=== PATIENT | male | born 1965 | race Caucasian/White ===

== ENCOUNTER → 2021-08-26 14:35 | Outpatient (CLI) | payer OTHER, SELFPAY ==
[2021-08-26 15:14] LABS: Adenovirus,PCR Not Detected (NotDetected); Bordetella Pertussis Not Detected (NotDetected); Chlamydophila Pneumoniae, PCR Not Detected (NotDetected); Coronavirus 19, PCR Not Detected (NotDetected); Coronavirus 229E Not Detected (NotDetected); Coronavirus NL63 Not Detected (NotDetected); Coronavirus OC43 Not Detected (NotDetected); Coronovirus HKU1,PCR Not Detected (NotDetected); Human Metapneumovirus Not Detected (NotDetected); Influenza A, PCR Not Detected (NotDetected); Influenza AH1, 2009 Not Detected (NotDetected); Influenza AH1, PCR Not Detected (NotDetected); Influenza AH3,PCR Not Detected (NotDetected); Influenza B, PCR Not Detected (NotDetected); Mycoplasma Pneumoniae, PCR Not Detected (NotDetected); Parainfluenza 1, PCR Not Detected (NotDetected); Parainfluenza 2, PCR Not Detected (NotDetected); Parainfluenza 3, PCR Not Detected (NotDetected); Parainfluenza 4, PCR Not Detected (NotDetected); Respiratory Syncytial Virus Not Detected (NotDetected); Rhinovirus/Enterovirus Not Detected (NotDetected)
[2021-08-26 15:31] LABS: Basophils # 0.1 K/mm3 (0-0.2); Basophils % 0.9 % (0.1-2.0); Eosinophils # 0.2 K/mm3 (0.0-0.4); Eosinophils % 2.3 % (0.1-12.0); Hematocrit 49.2 % (42.0-52.0); Lymphocytes # 2.3 K/mm3 (0.7-4.5); Lymphocytes % 33.1 % (10-50); Mean Corpuscular HGB Conc 32.6 g/dL (31.8-35.4); Mean Corpuscular Hemoglobin 30.8 pg (27.0-31.2); Mean Corpuscular Volume 94.6 fl (80-94); Mean Platelet Volume 7.1 fl (7.4-10.4); Monocytes # 0.4 K/mm3 (0.1-1.0); Monocytes % 6.4 % (1.7-9.3); Neutrophils % 57.3 % (37.0-80.0); Platelet Count 254 K/mm3 (142-424); Red Cell Distribution Width 13.6 % (11.5-17.5); White Blood Count 6.9 K/mm3 (4.8-10.8)
[2021-08-26 18:06] LABS: Alanine Aminotransferase 32 U/L (12-78); Albumin Level 4.4 g/dl (3.5-5.0); Albumin/Globulin Ratio 1.4 (1.1-1.8); Alkaline Phosphatase 93 U/L (38-126); Anion Gap 11.7 mEq/L (5-15); Aspartate Amino Transferase 42 U/L (17-59); Bilirubin,Total 0.5 mg/dl (0.2-1.3); Blood Urea Nitrogen 9 mg/dl (9-20); Calcium 9.5 mg/dl (8.4-10.2); Carbon Dioxide 33 mmol/L (22.0-30.0); Chloride 97 mmol/L (98-107); Estimated Glomerular Filt Rate 100 ml/min (>60); GFR (African American) 121 ML/MIN (>60); Globulin 3.1 g/dL (1.3-3.2); Glucose 113 mg/dl (74-100); Potassium 3.7 mmoL/L (3.5-5.1); Sodium 138 mmol/L (136-145); Total Protein,Serum 7.5 g/dl (6.3-8.2)
[2021-08-26 18:38] LABS: Thyroid Stimulating Hormone 4.25 uIU/mL (0.465-4.68)
[2021-08-26 18:56] LABS: Vitamin B12 387 pg/mL (239-931)
== END ==
PROVIDERS: PCP Family Medicine; Visit Provider Physician Assistant
DX: Z20.822 Contact with and (suspected) exposure to COVID-19 (principal)
CPT/HCPCS: 36415; 80053; 82607; 84443; 85025; 87581; 87632; 87798; C9803; U0003; U0005

== ENCOUNTER → 2021-10-01 13:14 | Outpatient (CLI) | payer OTHER, SELFPAY | PROVIDERS: PCP Family Medicine; Visit Provider Family Medicine | DX: U07.1 COVID-19 (principal) | CPT/HCPCS: C9803; U0003; U0005 ==

== ENCOUNTER → 2022-08-11 14:57 | Outpatient (CLI) | payer OTHER, SELFPAY ==
--- NOTE | 2022-08-11 15:02 | CT_ITS ---
FINAL REPORT CLINICAL HISTORY: H/O NICOTINE DEPENDENCE, CURRENT SMOKER 1PPD FOR 37 YUEARS FINDINGS: Low-Dose Chest CT Axial images were obtained from the lung apex to the mid abdomen by computed tomography. Low-dose protocol was utilized. CTDI vol (mGy): 2.90 DLP (mGy-cm): 113.33 There is no axillary adenopathy. There is no hilar or mediastinal adenopathy. The heart is proper size. 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 There is no pericardial or pleural effusion. Lung window images demonstrate mild changes of emphysema with mild pulmonary scarring. There is a calcified granuloma in the lingula. There is a right upper lobe nodule measuring 6 mm on image 38. Limited images of the upper abdomen postoperative changes from cholecystectomy. IMPRESSION: 6 mm right upper lobe nodule. Lung RADS category 3. Recommend 6 month follow-up low-dose chest CT. Reviewed, Interpreted and Dictated by Goyo Gaitan III, MD Transcribed by Devika Bryan Authenticated and [facility]
== END ==
PROVIDERS: PCP Family Medicine; Visit Provider Family Medicine
DX: Z87.891 Personal history of nicotine dependence (principal); Z12.2 Encounter for screening for malignant neoplasm of respiratory organs
CPT/HCPCS: 71271

== ENCOUNTER → 2022-10-14 15:41 | Outpatient (CLI) | payer OTHER, SELFPAY | PROVIDERS: PCP Family Medicine; Visit Provider Family Medicine | DX: G47.33 Obstructive sleep apnea (adult) (pediatric) (principal); R06.83 Snoring; I10 Essential (primary) hypertension | CPT/HCPCS: G0399 ==

== ENCOUNTER → 2022-11-23 09:15 | Outpatient (CLI) | payer OTHER, SELFPAY ==
[2022-11-23 10:35] LABS: Basophils # 0.1 K/mm3 (0-0.2); Basophils % 0.9 % (0.1-2.0); Eosinophils # 0.1 K/mm3 (0.0-0.4); Eosinophils % 1.6 % (0.1-12.0); Hematocrit 44.3 % (42.0-52.0); Hemoglobin 14.1 g/dL (14.1-18.0); Lymphocytes # 1.6 K/mm3 (0.7-4.5); Lymphocytes % 25.5 % (10-50); Mean Corpuscular HGB Conc 31.8 g/dL (31.8-35.4); Mean Corpuscular Hemoglobin 27.9 pg (27.0-31.2); Mean Corpuscular Volume 87.7 fl (80-94); Monocytes # 0.4 K/mm3 (0.1-1.0); Monocytes % 5.9 % (1.7-9.3); Neutrophils # 4.2 K/mm3 (1.8-7.8); Neutrophils % 66.1 % (37.0-80.0); Platelet Count 265 K/mm3 (142-424); Red Blood Count 5.05 M/mm3 (4.60-6.20); Red Cell Distribution Width 14.4 % (11.5-17.5); White Blood Count 6.3 K/mm3 (4.8-10.8)
[2022-11-23 11:24] LABS: Alanine Aminotransferase 22 U/L (12-78); Albumin Level 4.5 g/dl (3.5-5.0); Alkaline Phosphatase 101 U/L (38-126); Anion Gap 11.6 mEq/L (5-15); Aspartate Amino Transferase 26 U/L (17-59); Bilirubin,Indirect 0.5 mg/dL (0.0-0.9); Bilirubin,Total 0.5 mg/dl (0.2-1.3); Bilirubin,Unconjugated 0.5 mg/dL (0.0-1.1); Blood Urea Nitrogen 12 mg/dl (9-20); Calcium 8.9 mg/dl (8.4-10.2); Carbon Dioxide 31 mmol/L (22.0-30.0); Chloride 102 mmol/L (98-107); Cholesterol 142 mg/dl (140-200); Estimated Glomerular Filt Rate 87 ml/min (>60); GFR (African American) 105 ML/MIN (>60); Glucose 92 mg/dl (74-100); HDL Cholesterol 48 mg/dl (40-60); Potassium 4.6 mmoL/L (3.5-5.1); Sodium 140 mmol/L (136-145); Total Protein,Serum 7.5 g/dl (6.3-8.2); Triglycerides 99 mg/dl (30-150); VLDL Cholesterol 20 mg/dL (0-40)
[2022-11-23 11:35] LABS: Direct LDL Cholesterol 73.24 mg/dL (100-129)
[2022-11-23 11:41] LABS: Free T4 (Free Thyroxine) 0.87 ng/dl (0.78-2.19)
[2022-11-23 11:57] LABS: Thyroid Stimulating Hormone 4.07 uIU/mL (0.465-4.68)
[2022-11-23 12:01] LABS: Ferritin 10.4 ng/ml (17.9-464)
== END ==
PROVIDERS: Nurse Practitioner Family; PCP Family Medicine; Visit Provider Nurse Practitioner Family
DX: I49.9 Cardiac arrhythmia, unspecified (principal); E78.5 Hyperlipidemia, unspecified; I10 Essential (primary) hypertension; E83.10 Disorder of iron metabolism, unspecified; G25.81 Restless legs syndrome
CPT/HCPCS: 36415; 80048; 80061; 80076; 82728; 83735; 84439; 84443; 85025

== ENCOUNTER → 2022-11-25 07:46 | Outpatient (CLI) | payer OTHER, SELFPAY ==
--- NOTE | 2022-11-25 07:47 | CA_ITS ---
APPROVED REPORT EXAM: Comprehensive 2D, Doppler, and color-flow Echocardiogram Pack Puller: MICHAEL Farrell, RVS Ht: 6 ft 2 in Wt: 327lbs BSA: 2.68 BP: 130/76 mmHg Indications: Apnea, Arrthymia, Obesity, HTN, HLD, Smoker Echo Enhancing Agent Comments: Extremely limited acoustic windows due to excessive chest circumference. 2D Dimensions Aortic Root 3.49 cm LA Volume 36.50 mL Left Atrium 3.52 cm LA Volume Index 13.30 mL/m2 (M/F) 16-34 LVOT 2.07 cm (M/F) 1.5-2.5 M-Mode Dimensions RVDd 2.15 cm (0.9-2.6) LA Diam 4.38 cm (1.9-4.0) LVDd 5.24 cm (3.5-5.7) Ao Diam 3.35 cm (2.0-3.7) LVDs 3.47 cm (3.5-5.7) IVSd 1.40 cm (0.6-1.1) PWd 1.31 cm (0.6-1.1) EF (Teich) 62.20% EPSs 0.94 cm FS 33.80% EDV (Teich) 131.80 mL TAPSE 2.91 (<1.7) ESV (Teich) 49.80 mL LV Diastology E Decel Time 260.00 (160-240 msec) E/A Ratio 1.17 MED E' 7.80 (< 7 cm/sec) MED A' 12.40 cm/s E'/MED E' Ratio 13.81 (>14) LAT E' 7.40 (<10 cm/sec) LAT A' 11.90 cm/s E/LAT E' Ratio 14.55 (>14) Aortic Valve LVOT Max 117.00 (70-110 cm/s) LVOT VTI 22.53 cm AoV Peak Chele. 137.00 (50-130 cm/s) AO Peak GR. 7.50 mmHg AO Mean GR. 3.60 (<5 mmHg) AO VTI 25.43 (18-25 cm) BINA (VTI) 2.98 (2.5-4.5 cm2) Mitral Valve MV A Velocity 92.00 (40-130 cm/s) E/A Ratio 1.17 MV Decel. Time 260.00 (160-240 ms) MV PHT 47.00 ms Pulmonary Valve PV Peak Velocity 83.00 (50-150 cm/s) Left Ventricle Technically difficult study because of the patient factors and poor acoustic windows. Left atrium is mildly enlarged, left ventricle is normal size mild concentric left ventricular hypertrophy, estimated ejection fraction 55% with no regional wall motion abnormality, diastolic parameters are inconclusive. Right Ventricle Right atrium and right ventricular normal size and contractility. Aortic Valve Aortic valve is minimally thickened and calcified without aortic stenosis or aortic insufficiency. Mitral Valve Mitral valve has mild calcification, there is no mitral stenosis, there is mild mitral regurgitation. Tricuspid Valve Tricuspid grossly normal, there is mild tricuspid regurgitation, tricuspid regurgitation jet velocity is inadequate for calculation of the right ventricular systolic pressure. Pulmonic Valve Pulmonic valve is poorly visualized. Great Vessels Aortic root is normal size. Inferior vena cava is poorly visualized. Pericardium No significant pericardial effusion noted. Conclusion 1. Technically difficult study because of the patient factors and poor acoustic windows. Mildly enlarged left atrium, normal left ventricular size mild concentric left ventricular hypertrophy, estimated ejection fraction 55% with no regional wall motion abnormality, diastolic parameters are inconclusive. 2. Trace mitral and tricuspid regurgitation. 3. No significant pericardial effusion noted. 4. Inferior vena cava is poorly visualized. Electronically signed by : Bennie Lacy MD 11/25/2022 17:33:11
[2022-11-25 09:31] LABS: Iron 49 ug/dL (49-181)
[2022-11-25 09:41] LABS: Total Iron Binding Capacity 413 ug/dL (261-462)
== END ==
PROVIDERS: Nurse Practitioner Family; PCP Family Medicine; Visit Provider Nurse Practitioner Family
DX: I49.9 Cardiac arrhythmia, unspecified (principal); E61.1 Iron deficiency
CPT/HCPCS: 36415; 83540; 83550; 93225; 93306

== ENCOUNTER → 2022-12-21 09:20 | Outpatient (CLI) | payer OTHER, SELFPAY | PROVIDERS: PCP Family Medicine; Visit Provider Nurse Practitioner Family | DX: I49.9 Cardiac arrhythmia, unspecified (principal) | CPT/HCPCS: 93270 ==

== ENCOUNTER → 2023-03-10 15:06 | Outpatient (CLI) | payer OTHER, SELFPAY ==
--- NOTE | 2023-03-10 15:09 | CT_ITS ---
FINAL REPORT TECHNIQUE: This study was performed with techniques to keep radiation doses as low as reasonably achievable, (ALARA). Individualized dose reduction techniques using automated exposure control or adjustment of mA and/or kV according to the patient''s size were employed. CLINICAL HISTORY: ABN CT CHEST, 6 MOS F/U ABNORMAL CT COMPARISON: CT low-dose 08/11/2020 FINDINGS: CTDI vol (mGy): 24.20 DLP (mGy-cm): 948.[address] images of the chest were obtained using the low-dose protocol for screening. There is no evidence of mediastinal or hilar mass or adenopathy. No axillary mass or adenopathy is identified. Note is made of right-sided aortic arch with aberrant left subclavian artery as a variant. On the lung window images, there is a stable 5 mm right upper lobe nodule seen on image 41. There is mild emphysema. Mild scarring. No new mass or nodule. Limited images of the upper abdomen demonstrate postoperative changes from cholecystectomy. IMPRESSION: Stable right upper lobe nodule. Lung RADS category 2: Recommend 12-month follow-up low-dose CT. Reviewed, Interpreted and Dictated by Goyo Gaitan III, MD Transcribed by Deirdre Delgado Authenticated and [facility]
== END ==
PROVIDERS: PCP Family Medicine; Visit Provider Family Medicine
DX: R93.89 Abnormal findings on diagnostic imaging of other specified body structures (principal)
CPT/HCPCS: 71250

== ENCOUNTER 2024-04-03 15:43 | Outpatient (CLI) | payer BC, SELFPAY ==
--- NOTE | 2024-04-03 15:45 | US_ITS ---
FINAL REPORT TECHNIQUE: Ultrasound images of the testicles were obtained bilaterally. Color Doppler images were obtained. CLINICAL HISTORY: CYST AND EPIDIDYMIS FINDINGS: The right testicle measures 4.2 cm. Arterial flow is identified. No testicular mass is identified. There is a 1.6 cm cystic mass in the right epididymal head consistent with epididymal cyst versus spermatocele. There is a small right hydrocele. The left testicle measures 4.4 cm. Arterial flow is identified. No testicular mass is seen. There is a small hydrocele. IMPRESSION: No evidence of testicular mass or torsion. Cystic mass in the right epididymal head consistent with epididymal cyst versus spermatocele. Reviewed, Interpreted and Dictated by Goyo Gaitan III, MD Transcribed by Saadia Mooney Authenticated and [facility]
== END 2024-04-03 23:59 | disposition home or self-care (01) ==
PROVIDERS: PCP Family Medicine; Visit Provider Family Medicine
DX: N50.3 Cyst of epididymis (principal)
CPT/HCPCS: 76870

== ENCOUNTER 2024-12-17 08:04 | Outpatient (CLI) | payer BC, SELFPAY ==
[2024-12-17 09:10] LABS: Alanine Aminotransferase 17 U/L (12-78); Albumin Level 4.2 g/dl (3.5-5.0); Albumin/Globulin Ratio 1.3 (1.1-1.8); Alkaline Phosphatase 74 U/L (38-126); Anion Gap 13.2 mEq/L (5-15); Aspartate Amino Transferase 25 U/L (17-59); Bilirubin,Total 0.7 mg/dl (0.2-1.3); Blood Urea Nitrogen 9 mg/dl (9-20); Calcium 9.1 mg/dl (8.4-10.2); Carbon Dioxide 31 mmol/L (22.0-30.0); Chloride 103 mmol/L (98-107); Chol/HDL Ratio 2.7 (1-3.5); Cholesterol 127 mg/dl (140-200); Estimated Glomerular Filt Rate 99 ml/min (>60); GFR (African American) 119 ML/MIN (>60); Globulin 3.3 g/dL (1.3-3.2); Glucose 97 mg/dl (74-100); HDL Cholesterol 47 mg/dl (40-60); Potassium 4.2 mmoL/L (3.5-5.1); Sodium 143 mmol/L (136-145); Total Protein,Serum 7.5 g/dl (6.3-8.2); Triglycerides 76 mg/dl (30-150); VLDL Cholesterol 15 mg/dL (0-40)
[2024-12-17 09:21] LABS: Direct LDL Cholesterol 52.11 mg/dL (100-129)
[2024-12-17 09:39] LABS: Prostate Specific Ag Screen 0.4 ng/ml (0.0-4.0)
== END 2024-12-17 23:59 | disposition home or self-care (01) ==
LOC: LAB 08:05
PROVIDERS: PCP Family Medicine; Visit Provider Family Medicine
DX: N40.0 Benign prostatic hyperplasia without lower urinary tract symptoms (principal); I10 Essential (primary) hypertension; E78.5 Hyperlipidemia, unspecified
CPT/HCPCS: 36415; 80053; 80061; G0103

== ENCOUNTER 2025-05-06 17:50 | Outpatient (CLI) | payer BC, SELFPAY ==
--- OUTSIDE RECORDS SUMMARY | 2024-03-26 12:15 | XMS_ITS ---
Author Organization [facility] Address [address] [facility] [address] [place] [id number] Care Team Providers Care Hop Farm Worker Name Role Phone Ban Webster Primary Care Provider Allergies Allergen (clinical drug ingredient) Drug/Non Drug Allergy documented on EMR Reaction Allergy Type Onset Date Status Penicillin Unknown Drug Allergy Active Results Component Value Reference Range Notes Ultrasound : Scrotum Reviewed date:04/05/2024 10:48:03 AM Interpretation:cystic mass- epididymal cyst versus spermatocele Performing Lab: Notes/Report: cystic mass- epididymal cyst versus spermatocele REASON FOR VISIT 5 mo ck up, Needs low dose chest CT Medications Medication SIG (Take, Route, Frequency, Duration) Notes Start Date End Date Status Slow Fe 142 (45 Fe) MG 1 tablet Orally T wo times a Week Active DULoxetine HCl 60 MG 1 capsule Orally On ce a day; Duration: 90 days Active Omeprazole 40 MG 1 Orally once daily; Duration: 90 days Active Rosuvastatin Calcium 10 MG 1 tablet Oral ly Once a day; Duration: 90 days Active Ramipril 5 MG 1 capsule Orally Onc e a day; Duration: 90 days Active hydroCHLOROthiazide 25 MG 1 Orally once daily; Duration: 90 days Active Problems Problem Type SNOMED Code ICD Code Onset Dates Problem Status W/U Status Risk Notes Problem Body mass index 40+ - severely obese ([id number]) Body mass index (BMI) of 40.1 to 44.9 in adult (Z68.41) Active confirmed Vital Signs Blood pressure systolic 126 mm Hg 03/26/20 24 Blood pressure diastolic 82 mm Hg 024 Heart Rate 75 /min 03/26/2024 Height 74 in 03/26/2024 Weight 325.4 lbs 03/26/2024 BMI 41.77 kg/m2 03/26/2024 Encounters Encounter Location Date Provider Diagnosis [facility] [address] [facility] [address] [place] [id number] 03/26/2024 Ban Webster Essential hypertensi on I10 ; Body mass index (BMI) of 40.1 to 44.9 in adult Z68.41 and Cyst, epididymis N50.3 Assessments Encounter Date Diagnosis (ICD Code) Assessment Notes Treatment Notes Treatment Clinical Notes Section Notes 03/26/2024 Essential hypertension (ICD-10 - I10) Recommended OTC Potassium 99mg, two daily 03/26/2024 Body mass index (BMI) of 40.1 to 44.9 in adult (ICD-10 - Z68.41) 03/26/2024 Cyst, epididymis (ICD-10 - N50.3) Plan Of Treatment Medication Medication Name Sig Start Date Stop Date Notes DULoxetine HCl 60 MG 1 capsule Orally On ce a day; Duration: 90 days Omeprazole 40 MG 1 Orally once daily; Duration: 90 days Rosuvastatin Calcium 10 MG 1 tablet Oral ly Once a day; Duration: 90 days Ramipril 5 MG 1 capsule Orally Onc e a day; Duration: 90 days hydroCHLOROthiazide 25 MG 1 Orally once daily; Duration: 90 days Treatment Notes Assessment Notes Essential hypertension Recommended OTC P otassium 99mg, two daily Next Appt Details Follow Up: 3 Months, Reason: Provider Name:Rudolph Avila ry, 05/10/2025 04:15:00 PM, [address] [facility], [address], [place], [phone], Provider Name:Ban Garcia er, 05/13/2025 04:00:00 PM, [address] [facility], [address], [place], [phone], Progress Notes * ERICH FENTONDOB:1965 ( 59 yo M)Acc No.[id number]:03/26/2024 Progress Notes Patient: ERICH WREN Provider: Ban Webster M.D. :1965 A ge:58 Y S ex:Male Date:03/26/2024 Address:[place], [id number] Subjective: * Chief Complaints: * 1 . 5 mo ck up. 2. Needs low dose chest CT. * HPI: C ardiology: The pt is here for a check up on Hypertension. Pt states he is doing good and denies any new concerns. Pt states he is needing refills sent to [facility] pharmacy for 90 days supply. Denies : Chest Pain. D enies : Short of Breath. D enies : Dizziness. D enies : Palpitations. M mingo Reproductive: Denies : testicular swelling b ut he has noticed an elargement near the right testicle, only slight tenderness. * ROS: D ERMATOLOGY: no R sue. n o H juan carlos. G ASTROENTEROLOGY: no N ausea. n o V omiting. n o D iarrhea.? U ROLOGY: no D ifficulty urinating. n o B lood in urine. * Medical History: H ypertension, Hiatal hernia, Esophageal reflux, COVID 19 infection 2021, 10/25/22 Neg Cologuard. * Surgical History: t onsillectomy , cholecystectomy 11/2013, C6-7 diskectomy with fusion with Dr Smith 04/2016, C4-6 diskectomy and fusion - Dr. Smith 08/2020. * Hospitalization/Major Diagno stic Procedure: E R, Cholelithiasis 11/26/13. * Family History: F ather: alive. M other: , MVA. 3 brother(s) - healthy. 2 son(s) - healthy. .? * Social History: C URRENT TOBACCO USE S moking Status: Patient does smoke, packs per day: 1, number of cigarettes per day: 20, Since age of: 19, Smoking preference: cigarettes. H ome smoke detector use: yes. Marital Status: . Past smoking status: yes, PPD: 1, years:18 ,determination:. * Medications: T aking Slow Fe 142 (45 Fe) MG Tablet Extended Release 1 tablet Orally Two times a Week , Taking Omeprazole 40 MG Capsule Delayed Release TAKE 1 CAPSULE BY MOUTH ONCE DAILY , Taking hydroCHLOROthiazide 25 MG Tablet TAKE 1/2 TABLET BY MOUTH ONCE DAILY , Taking Ramipril 5 MG Capsule 1 capsule Orally Once a day , Taking DULoxetine HCl 60 MG Capsule Delayed Release Particles 1 capsule Orally Once a day , Taking Rosuvastatin Calcium 10 MG Tablet 1 tablet Orally Once a day , Discontinued CoQ10 200 MG Capsule 200 mg orally once a day , Discontinued B-12 1000 MCG Tablet 1 tab(s) orally once a day , Medication List reviewed and reconciled with the patient * Allergies: P enicillin. Objective: * Vitals: W t:325.4, Temp:98.1, BP:126/82, HR:75, Nurse:LIZ, Ht: 74, BMI:41.77. * Examination: G eneral Examination: General Appearance: N AD. H EENT: u nremarkable.?Oral cavity: n o lesions, mucosa moist and WNL, no erythema. N renzo: s upple, no lymphadenopathy. C hest: n ormal shape and expansion. H eart: R SR. L ungs: c lear to auscultation. A bdomen: soft and nontender, no organomegaly or masses. N eurologic Exam: I ntact, gait normal. S kin: n ormal, no rash. P eripheral pulses: n ormal. B ack: dorsal kyphosis. E xtremities: 2 + l eg edema. G enitalia: testes palpable bilaterally, testes normal, no lesions. There is a cystic enlargement of the right epididymis, about 2 cm. Not very tender.. Assessment: * Assessment: 1. E ssential hypertension - I10 (Primary) 2 . B savi mass index (BMI) of 40.1 to 44.9 in adult - Z68.41 3 . C yst, epididymis - N50.3 Plan: * Treatment: 2. C yst, epididymis I maging: Ultrasound : Scrotum (Performed Date - 04/03/2024) c ystic mass- epididymal cyst versus spermatocele 3.?Others? Refill DULoxetine HCl Capsule Delayed Release Particles, 60 MG, 1 capsule, Orally, Once a day, 90 days, 90 Capsule, Refills 1;?Refill Omeprazole Capsule Delayed Release, 40 MG, 1, Orally, once daily, 90 days, 90, Refills 1;?Refill Rosuvastatin Calcium Tablet, 10 MG, 1 tablet, Orally, Oncea day, 90 days, 90 Tablet, Refills 1.?? * Follow Up: 3 Months * Images: Billing Information: * Visit Code: 82835 Office Visit, Est Pt., Level 4. * Procedure Codes: * Electronic signature of Ban Webster MD on 05/06/2025 at 05:54 PM EDT Sign off status: Pending * Provider: Ban Webster M.D. Date: 0 03/26/2024 Generated for Daii dontae/Marsha/eTransmitting on: 0 05/06/2025 05:54 PM EDT History and Physical Notes * HPI (History of Present Illness) Category Sub-Category Detail Notes Category Not es Cardiology Short of Breath Chest Pain Palpitations Dizziness Male Reproductive testicular swelling but he has noticed an elargement near the right testicle, only slight tenderness Examination Category Sub-Category Detail Notes Category Not es General Examination HEENT: unremarkable Heart: RSR Lungs: clear to auscultatio n Abdomen: soft and nontender, no organomegaly or masses Extremities: 2+ leg edema General Appearance: NAD Skin: normal, no rash Neurologic Exam: Intact, gait normal Neck: supple, no lymphaden opathy Oral cavity: no lesions, mucosa m oist and WNL, no erythema Peripheral pulses: normal Back: dorsal kyphosis Genitalia: testes palpable bila terally, testes normal, no lesions. There is a cystic enlargement of the right epididymis, about 2 cm. Not very tender. Chest: normal shape and exp ansion
--- OUTSIDE RECORDS SUMMARY | 2024-06-28 11:15 | XMS_ITS ---
[facility] Address [address] [facility] [address] [place] [id number] Care Team Providers Care Customer Acquisition Manager Name Role Phone Ban Webster Primary Care Provider Allergies Allergen (clinical drug ingredient) Drug/Non Drug Allergy documented on EMR Reaction Allergy Type Onset Date Status Penicillin Unknown Drug Allergy Active Results Component Value Reference Range Notes P-Comprehensive Metabolic Pa gilberto (CMP) Reviewed date:07/09/2024 10:24:04 AM Interpretation: Performing Lab: Notes/Report: REASON FOR VISIT 3 mo ck up, Needs labs & low dose chest CT Medications Medication SIG (Take, Route, Frequency, Duration) Notes Start Date End Date Status hydroCHLOROthiazide 25 MG 1 Orally once daily; Duration: 90 days Active DULoxetine HCl 60 MG 1 capsule Orally On ce a day; Duration: 90 days Active Ramipril 5 MG 1 capsule Orally Onc e a day; Duration: 90 days Active Rosuvastatin Calcium 10 MG 1 tablet Oral ly Once a day; Duration: 90 days Active Omeprazole 40 MG 1 Orally once daily; Duration: 90 days Active Slow Fe 142 (45 Fe) MG 1 tablet Orally T wo times a Week Active Vital Signs Blood pressure systolic 122 mm Hg 06/28/20 24 Blood pressure diastolic 80 mm Hg 024 Heart Rate 70 /min 06/28/2024 Height 74 in 06/28/2024 Weight 319.4 lbs 06/28/2024 BMI 41.00 kg/m2 06/28/2024 Encounters Encounter Location Date Provider Diagnosis [facility] [address] [facility] [address] [place] [phone] 06/28/2024 Ban Webster Essential hypertensi on I10 and Seborrheic keratosis L82.1 Assessments Encounter Date Diagnosis (ICD Code) Assessment Notes Treatment Notes Treatment Clinical Notes Section Notes 06/28/2024 Essential hypertension (ICD-10 - I10) 06/28/2024 Seborrheic keratosis (ICD-10 - L82.1) Plan Of Treatment Next Appt Details Follow Up: 5 Months, Reason: Provider Name:Rudolph Avila ry, 05/10/2025 04:15:00 PM, [address], [address], [place], [place], [phone], Provider Name:Ban Garcia er, 05/13/2025 04:00:00 PM, [address] [facility], [address], [place], [place], [phone], Procedure Notes * Category Sub-Category Detail Notes Cryotherapy Benign Lesion Method: Wallac h LL 100 used to freeze and refreeze the lesion Post-Op Instruction: clean wound with vi sari water twice a day, Apply Vaseline twice a day to wound Progress Notes * ERICH FENTONDOB:1965 ( 59 yo M)Acc No.[id number]:06/28/2024 Progress Notes Patient: ERICH WREN Provider: Ban Webster M.D. :1965 A ge:58 Y S ex:Male Date:06/28/2024 Address:[address] [place], [place] [address], [id number] Subjective: * Chief Complaints: * 1 . 3 mo ck up. 2. Needs labs & low dose chest CT. * HPI: C ardiology: The patient is here for a check up on Hypertension. pt states he does not check his BP at home. Pt states he has a dark spot on the left forearm he would like checked today. Denies : Chest Pain. D enies : Short of Breath. D enies : Dizziness. D enies : Palpitations. P sychology: Doing well on Duloxetine. I told him to check with Pharmacist regarding recent recall. * ROS: D ERMATOLOGY: no R sue. [...] Orally Two times a Week , Taking hydroCHLOROthiazide 25 MG Tablet 1 Orally once daily , Taking Ramipril 5 MG Capsule 1 capsule Orally Once a day , Taking DULoxetine HCl 60 MG Capsule Delayed Release Particles 1 capsule Orally Once a day , Taking Omeprazole 40 MG Capsule Delayed Release 1 Orally once daily , Taking Rosuvastatin Calcium 10 MG Tablet 1 tablet Orally Once a day , Medication List reviewed and reconciled with the patient * Allergies: P enicillin. Objective: * Vitals: W t:319.4, Temp:98.2, BP:122/80, HR:70, Nurse:LIZ, Ht: 74, BMI:41.00. * Examination: G eneral Examination: General Appearance: [...] E xtremities: 2 + l eg edema. ? Assessment: * Assessment: 1. E ssential hypertension - I10 (Primary) 2 . S eborrheic keratosis - L82.1 Plan: * Treatment: * Procedures: C ryotherapy Benign Lesion: Method: W allach LL 100 used to freeze and refreeze the lesion. P ost-Op Instruction: c lean wound with vinegar water twice a day, Apply Vaseline twice a day to wound. * Follow Up: 5 Months * Images: Billing Information: * Visit Code: 63135 Office Visit, Est Pt., Level 4. * Procedure Codes: * Electronic signature of Ban Webster MD on 05/06/2025 at 05:54 PM EDT Sign off status: Pending * Provider: Ban Webster M.D. Date: Generated for Daii dontae/Marsha/eTransmitting on: 0 05/06/2025 05:54 PM EDT History and Physical Notes * HPI (History of Present Illness) Category Sub-Category Detail Notes Category Not es Cardiology Short of Breath Chest Pain Palpitations Dizziness Examination Category Sub-Category Detail Notes Category Not [...] Peripheral pulses: normal Back: dorsal kyphosis Genitalia: Chest: normal shape and exp ansion
--- OUTSIDE RECORDS SUMMARY | 2024-12-10 12:00 | XMS_ITS ---
Author Organization [facility] Address [address] [place] [id number] Care Team Providers Care Associate Marketing Manager Name Role Phone Ban Webster Primary Care Provider Allergies Allergen (clinical drug ingredient) Drug/Non Drug Allergy documented on EMR Reaction Allergy Type Onset Date Status Penicillin Unknown Drug Allergy Active Results Component Value Reference Range Notes PSA Reviewed date:12/20/2024 01:40:06 PM Interpretation: Performing Lab: Notes/Report: Complete Metabolic Profile Reviewed date:12/20/2024 01:40:43 PM Interpretation: Performing Lab: Notes/Report: lipid profile Reviewed date:12/20/2024 01:41:01 PM Interpretation: Performing Lab: Notes/Report: REASON FOR VISIT 5 month check up, Needs labs with PSA, low dose chest CT, & shingles vaccine Medications Medication SIG (Take, Route, Frequency, Duration) Notes Start Date End Date Status Slow Fe 142 (45 Fe) MG 1 tablet Orally T wo times a Week Active Ramipril 5 MG TAKE 1 CAPSULE BY MO [facility] ONCE DAILY; Duration: 90 Active Omeprazole 40 MG TAKE 1 CAPSULE BY MO [facility] ONCE DAILY; Duration: 90 Active hydroCHLOROthiazide 25 MG TAKE 1 TABLET BY MOUTH ONCE DAILY; Duration: 90 Active DULoxetine HCl 60 MG TAKE 1 CAPSULE BY M [facility] ONCE DAILY; Duration: 90 Active Rosuvastatin Calcium 10 MG TAKE 1 TABLET BY MOUTH ONCE DAILY; Duration: 90 Active Problems Problem Type SNOMED Code ICD Code Onset Dates Problem Status W/U Status Risk Notes Problem Hyperlipidaemia (27335490) Hyperlipidemia, unspecified hyperlipidemia type (E78.5) Active confirmed Problem Pure hypercholesterolemia (285703829) Pure hypercholesterolemia (E78.00) Active confirmed Vital Signs Blood pressure systolic 130 mm Hg 12/11/19 25 Blood pressure diastolic 80 mm Hg 025 Heart Rate 71 /min 12/10/2024 Height 74 in 12/10/2024 Weight 319.0 lbs 12/10/2024 BMI 40.95 kg/m2 12/10/2024 Encounters Encounter Location Date Provider Diagnosis [facility] [address] [place] [id number] 12/10/2024 Ban Webster Essential hypertensi on I10 ; Pure hypercholesterolemia E78.0 ; Status post cervical spinal fusion Z98.1 ; Body mass index (BMI) of 40.1 to 44.9 in adult Z68.41 ; Benign prostatic hyperplasia without lower urinary tract symptoms N40.0 ; Hyperlipidemia, unspecified hyperlipidemia type E78.5 and Pure hypercholesterolemia E78.00 Assessments Encounter Date Diagnosis (ICD Code) Assessment Notes Treatment Notes Treatment Clinical Notes Section Notes 12/10/2024 Essential hypertensi on (ICD-10 - I10) 12/10/2024 Pure hypercholesterolemia (ICD-10 - E78.0) 12/10/2024 Status post cervical spinal fusion (ICD-10 - Z98.1) 12/10/2024 Body mass index (BMI ) of 40.1 to 44.9 in adult (ICD-10 - Z68.41) 12/10/2024 Benign prostatic hyperplasia without lower urinary tract symptoms (ICD-10 - N40.0) 12/10/2024 Hyperlipidemia, unspecified hyperlipidemia type (ICD-10 - E78.5) 12/10/2024 Pure hypercholesterolemia (ICD-10 - E78.00) Plan Of Treatment Next Appt Details Follow Up: 5M, Reason: Provider Name:Rudolph Avila ry, 05/10/2025 04:15:00 PM, [address] [facility], [address], [place], [id number], Provider Name:Ban Garcia er, 05/13/2025 04:00:00 PM, [address] [facility], [address], [place], [id number], Progress Notes * SEVERIANO FENTON:1965 ( 59 yo M)Acc No.[id number]:12/10/2024 Progress Notes Patient: ERICH WREN Provider: Ban Webster M.D. :1965 A ge:59 Y S ex:Male Date:12/10/2024 Address:[facility] [place], [id number] Subjective: * Chief Complaints: * 1 . 5 month check up. 2. Needs labs with PSA, low dose chest CT, & shingles vaccine. * ROS: D ERMATOLOGY: no R sue. [...] Week , Taking hydroCHLOROthiazide 25 MG Tablet TAKE 1 TABLET BY MOUTH ONCE DAILY , Taking Omeprazole 40 MG Capsule Delayed Release TAKE 1 CAPSULE BY MOUTH ONCE DAILY , Taking Ramipril 5 MG Capsule TAKE 1 CAPSULE BY MOUTH ONCE DAILY , Taking Rosuvastatin Calcium 10 MG Tablet TAKE 1 TABLET BY MOUTH ONCE DAILY , Taking DULoxetine HCl 60 MG Capsule Delayed Release Particles TAKE 1 CAPSULE BY MOUTH ONCE DAILY , Medication List reviewed and reconciled with the patient * Allergies: P enicillin. Objective: * Vitals: W t:319.0, Temp:98.2, BP:130/80, HR:71, Nurse:LIZ, Ht: 74, BMI:40.95. * Examination: G eneral Examination: General Appearance: [...] ormal. B ack: dorsal kyphosis. E xtremities: 1 + l eg edema. ? Assessment: * Assessment: 1. E ssential hypertension - I10 (Primary) 2 . P ure hypercholesterolemia - E78.0 3 . S tatus post cervical spinal fusion - Z98.1 4 . B savi mass index (BMI) of 40.1 to 44.9 in adult - Z68.41 5 . B enign prostatic hyperplasia without lower urinary tract symptoms - N40.0 6 . H yperlipidemia, unspecified hyperlipidemia type - E78.5 7 . P ure hypercholesterolemia - E78.00 Plan: * Treatment: 2.?Benign prostatic hyperplasia without lower urinary tract symptoms?LAB: PSA (Collection Date & Time - 12/20/2024)* see duplicate order 3.?Hyperlipidemia, unspecified hyperlipidemia type?LAB: lipid profile (Collection Date & Time - 12/20/2024)* see duplicate order * Procedure Codes: 3 075F SYST BP GE 130 - 139MM HG, 3079F DIAST BP 80-89 MM HG * Follow Up: 5 M * Images: Billing Information: * Visit Code: 76318 Office Visit, Est Pt., Level 4. * Procedure Codes: 3075F SYST BP GE 130 - 139MM HG. 3079F DIAST BP 80-89 MM HG. * Electronic signature of Ban Webster MD on 05/06/2025 at 05:54 PM EDT Sign off status: Pending * Provider: Ban Webster M.D. Date: 0 12/10/2024 Generated for Jonathan diggs/Marsha/eTransmitting on: 0 05/06/2025 05:54 PM EDT History and Physical Notes * Examination Category Sub-Category Detail Notes Category Not es General Examination HEENT: unremarkable Heart: RSR Lungs: clear to auscultatio n Abdomen: soft and nontender, no organomegaly or masses Extremities: 1+ leg edema General Appearance: NAD Skin: normal, no rash Neurologic Exam: Intact, gait normal Neck: supple, no lymphaden opathy Oral cavity: no lesions, mucosa m oist and WNL, no erythema Peripheral pulses: normal Back: dorsal kyphosis Genitalia: Chest: normal shape and exp ansion
--- NOTE | 2025-05-06 | XR_ITS ---
PROCEDURE INFORMATION: Exam: XR Chest Exam date and time: 05/06/2025 6:46 PM Age: 59 years old Clinical indication: Cough and shortness of breath; Smoker's cough; Additional info: PT has had cough since labor day and SOB. Smoker of 40 yrs TECHNIQUE: Imaging protocol: Radiologic exam of the chest. Views: 2 views. COMPARISON: CT CHEST WO CON 03/10/2023 3:16 PM FINDINGS: Tubes, catheters and devices: Plate screw hardware overlies the lower cervical spine. Lungs: Central opacities with peribronchial cuffing, seen to advantage on the lateral chest radiograph. Right basilar opacities partially silhouette the diaphragm with loss of airspace favoring atelectasis. Pleural spaces: Unremarkable. No pleural effusion. No pneumothorax. Heart/Mediastinum: Unremarkable. No cardiomegaly. Bones/joints: Unremarkable. IMPRESSION: 1. Combination of findings that suggests viral process versus reactive airways without evidence of consolidation. 2. Right basilar opacities partially silhouette the diaphragm with loss of airspace favoring atelectasis.
--- OUTSIDE RECORDS SUMMARY | 2025-05-06 17:54 | XMS_ITS | Patient Health Record ---
[facility] Organization [facility] Address [address] [place] [phone] Care Team Providers Care Mechanical Product Design Engineer Name Role Phone Ban Webster Primary Care Provider Allergies Allergen (clinical drug ingredient) Drug/Non Drug Allergy documented on EMR Reaction Allergy Type Onset Date Status Penicillin Unknown Drug Allergy Active Results Component Value Reference Range Notes Influenza Screen (in house) (Not yet reviewed by provider) Interpretation: Performing Lab: Notes/Report: results Neg CBC Fingerstick (in house) ( Not yet reviewed by provider) Interpretation: Performing Lab: Notes/Report: wbc 10.4 3.5 - 10 lym 20.6% 15 - 50 mid 6.0% 2 - 15 gran 73.4% 35 - 80 rbc 4.90 3.5 - 5.5 hgb 15.5 11.5 - 16.5 hct 45.8 35 - 55 mcv 93.5 75 - 100 mch 31.6 25 - 35 mchc 33.8 31 - 38 plat 176 100 - 400 Covid test (in house) (Not y et reviewed by provider) Interpretation: Performing Lab: Notes/Report: Result: Neg lipid profile Reviewed date:12/20/2024 01:41:01 PM Interpretation: Performing Lab: Notes/Report: Complete Metabolic Profile Reviewed date:12/20/2024 01:40:43 PM Interpretation: Performing Lab: Notes/Report: PSA Reviewed date:12/20/2024 01:40:06 PM Interpretation: Performing Lab: Notes/Report: P-Comprehensive Metabolic Pa gilberto (CMP) Reviewed date:07/09/2024 10:24:04 AM Interpretation: Performing Lab: Notes/Report: P-Basic Metabolic Panel (BMP ) Reviewed date:07/04/2024 04:33:51 PM Interpretation: Normal Performing Lab: Notes/Report: Test performed by [facility], [address] , [address], [place] [address] Brad Baker MD, Esl Instructor CLIA: [id number] Sodium 142 135-145 mmol/L Potassium 4.4 3.5-5.3 mmol/L Chloride 102 97-108 mmol/L CO2 25 22-32 mmol/L Glucose 93 65-99 mg/dL BUN 16 6-20 mg/dL Creatinine 0.88 0.70-1.30 mg/dL Calcium 9.2 8.6-10.4 mg/dL eGFR by Creatinine 99 >59 mL/min/1.73m2 H-Lipid Panel Reviewed date:01/11/2025 01:10:20 PM Interpretation:chol 127, dldl 52 Performing Lab: Notes/Report: Patient Fasting? Y TRIG 76 30-150 mg/dl CHOL 127 140-200 mg/dl DLDL 52.11 100-129 mg/dL VLDL 15 0-40 mg/dL HDL 47 40-60 mg/dl CHLHDL 2.7 1-3.5 H-CMP Reviewed date:01/11/2025 01:10:20 PM Interpretation:co2- 31 Performing Lab: Notes/Report: NA 143 136-145 mmol/L K 4.2 3.5-5.1 mmoL/L CL 103 98-107 mmol/L CO2 31 22.0-30.0 mmol/L GAP 13.2 5-15 mEq/L BUN 9 9-20 mg/dl CREATT 0.80 0.66-1.25 mg/dl GFRAA 119 >60 ML/MIN EGFR 99 >60 ml/min GLU 97 74-100 mg/dl CA 9.1 8.4-10.2 mg/dl BILIT 0.7 0.2-1.3 mg/dl AST 25 17-59 U/L ALT 17 12-78 U/L TP 7.5 6.3-8.2 g/dl ALB 4.2 3.5-5.0 g/dl GLOB 3.3 1.3-3.2 g/dL AGRATIO 1.3 1.1-1.8 ALP 74 38-126 U/L H-PSA Reviewed date:01/11/2025 01:10:20 PM Interpretation:Negative Performing Lab: Notes/Report: PSASC 0.4 0.0-4.0 ng/ml Medications Medication SIG (Take, Route, Frequency, Duration) Notes Start Date End Date Status Azithromycin 500 MG 1 tablet Orally daily; Duration: 3 days 05/06/2025 Active Ramipril 5 MG 1 capsule Orally Onc e a day; Duration: 90 days Active Omeprazole 40 MG TAKE 1 CAPSULE BY MOUTH ONCE DAILY; Duration: 90 Active Albuterol Sulfate HFA 108 (9 0 Base) MCG/ACT 1 puff as needed Inhalation every 4 hrs 05/06/2025 Active hydroCHLOROthiazide 25 MG 1 tablet in th e morning Orally Once a day; Duration: 90 days Active methylPREDNISolone 4 MG as directed Oral ly; Duration: 6 days 05/06/2025 Active Rosuvastatin Calcium 10 MG 1 tablet Oral ly Once a day; Duration: 90 days Active DULoxetine HCl 60 MG TAKE 1 CAPSULE BY MOUTH ONCE DAILY; Duration: 90 Active Slow Fe 142 (45 Fe) MG 1 tablet Orally T wo times a Week Active Immunizations Vaccine Route Administration Date Status Comme nts COVID 19 [place] Unknown 12/03/2020 Administered Tetanus Tdap-Adacel (over 7yrs) IM Intramuscular 07/26/2022 Administered Problems Problem Type SNOMED Code ICD Code Onset Dates Problem Status W/U Status Risk Notes Problem Gout (19603101) Gout NOS (274.9) Active confirm ed Problem Vitamin B12 deficiency (798432975) Vitamin B12 deficiency (E53.8) Active confirmed Problem Essential hypertension (49037326) Essential hypertension (I10) Active confirmed Problem Pure hypercholesterolemia (130937989) Pure hypercholesterolemia (E78.0) Active confirmed Problem Slowing of urinary stream (52210857) Poor urinary stream (R39.12) Active confirmed Problem Chronic fatigue syndrome (49591284) Chronic fatigue (R53.82) Active confirmed Problem Obstructive sleep apnea syndrome (16633732) Obstructive sleep apnea syndrome (G47.33) Active confirmed Problem Sleep disorder (80568694) Sleep disorder (G47.9) Active confirmed Problem Hyperlipidaemia (02583426) Hyperlipidemia, unspecified hyperlipidemia type (E78.5) Active confirmed Problem Body mass index 40+ - severely obese (001757937) Body mass index (BMI) of 40.1 to 44.9 in adult (Z68.41) Active confirmed Problem Cervical radiculopathy (43679476) Cervical disc disorder with radiculopathy of cervical region (M50.10) Active confirmed Problem Pure hypercholesterolemia (221316871) Pure hypercholesterolemia (E78.00) Active confirmed Problem Pure hypercholesterolemia (243454670) Pure hypercholesterolemia, unspecified (E78.00) Active confirmed Problem Benign prostatic hypertrophy without outflow obstruction (887714586) Benign prostatic hyperplasia without lower urinary tract symptoms (N40.0) Active confirmed Problem Lower urinary tract symptoms due to benign prostatic hypertrophy (85533878303914) Benign prostatic hyperplasia with lower urinary tract symptoms (N40.1) Active confirmed Problem History of arthrodesis (167613075) Status post cervical spinal fusion (Z98.1) Active confirmed Problem Tomography - chest abnormal (028317363) Abnormal CT scan, chest (R93.89) Active confirmed Vital Signs Heart Rate 78 /min 05/06/2025 Blood pressure diastolic 82 mm Hg 05/06/2025 Height 74 in 05/06/2025 Blood pressure systolic 120 mm Hg 05/06/2025 Weight 312.4 lbs 05/06/2025 BMI 40.11 kg/m2 05/06/2025 Encounters Encounter Location Date Provider Diagnosis [facility] [address] [id number] 06/28/2024 Ban Webster Essential hypertensi on I10 and Seborrheic keratosis L82.1 [facility] [address] [id number] 12/10/2024 Ban Webster Essential hypertensi on I10 ; Pure hypercholesterolemia E78.0 ; Status post cervical spinal fusion Z98.1 ; Body mass index (BMI) of 40.1 to 44.9 in adult Z68.41 ; Benign prostatic hyperplasia without lower urinary tract symptoms N40.0 ; Hyperlipidemia, unspecified hyperlipidemia type E78.5 and Pure hypercholesterolemia E78.00 [facility] [address] [id number] 05/06/2025 Ban Webster Pneumonia of right l kt due to infectious organism, unspecified part of lung J18.9 [place] [address] [address] [facility] [address] [facility] [address] [place] [id number] 01/11/2025 Ban Webster Assessments Encounter Date Diagnosis (ICD Code) Assessment Notes Treatment Notes Treatment Clinical Notes Section Notes 06/28/2024 Essential hypertensi on (ICD-10 - I10) 06/28/2024 Seborrheic keratosis (ICD-10 - L82.1) 12/10/2024 Essential hypertensi on (ICD-10 - I10) 12/10/2024 Pure hypercholesterolemia (ICD-10 - E78.0) 05/06/2025 Pneumonia of right l kt due to infectious organism, unspecified part of lung (ICD-10 - J18.9) 12/10/2024 Status post cervical spinal fusion (ICD-10 - Z98.1) 12/10/2024 Body mass index (BMI ) of 40.1 to 44.9 in adult (ICD-10 - Z68.41) 12/10/2024 Benign prostatic hyperplasia without lower urinary tract symptoms (ICD-10 - N40.0) 12/10/2024 Hyperlipidemia, unspecified hyperlipidemia type (ICD-10 - E78.5) 12/10/2024 Pure hypercholesterolemia (ICD-10 - E78.00) Plan Of Treatment Pending Test Test Name Order Date Influenza Screen (in house) 05/06/2025 CXR 05/06/2025 CBC Fingerstick (in house) 05/06/2025 Covid test (in house) 05/06/2025 Next Appt Details Provider Name:Rudolph Avila ry, 05/10/2025 04:15:00 PM, [address] [facility] [address] [facility], [address], [place], [phone], Provider Name:Ban Garcia er, 05/13/2025 04:00:00 PM, [address] [facility] [address] [facility], [address], [place], [phone], Insurance Providers Payer Name Payer Address Payer Phone Subscriber Number Group Number Insured Name Patient Relationship to Insured Coverage Start Date Coverage End Date [employer] [address] [place] [address] [id number] ERICH FENTON Self - patient is the insured [employer] [facility] [address] [place] [address] [id number] ERICH FENTON Self - patient is the insured Medications Administered Medication Instructions Date of Administration Dosage Notes B-12 07/08/2020 1 mL B-12 07/23/2020 1 mL Medical (General) History Medical History History ICD Code Hypertension Hiatal hernia Esophageal reflux COVID 19 infection 2021 10/25/22 Neg Cologuard Surgical History Surgery Date(Month/Year) tonsillectomy cholecystectomy 11/2013 C6-7 diskectomy with fusion with Dr Smith 04/2016 C4-6 diskectomy and fusion - Dr. Smith 2020 Hospitalization History Reason Date(Month/Year) ER, Cholelithiasis 11/26/13
== END 2025-05-06 23:59 | disposition home or self-care (01) ==
PROVIDERS: PCP Family Medicine; Visit Provider Family Medicine
DX: J41.0 Simple chronic bronchitis (principal); R91.8 Other nonspecific abnormal finding of lung field
CPT/HCPCS: 71046

== ENCOUNTER 2025-07-15 15:12 | Outpatient (CLI) | payer BC, SELFPAY ==
[2025-07-15 17:49] LABS: Ferritin 34.6 ng/ml (17.9-464)
--- OUTSIDE RECORDS SUMMARY | 2025-07-15 22:51 | XMS_ITS | Data Portability ---
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 Wall returns in follow-up today to review his cervical imaging completed at [facility] on 08/10/2022. He continues to report posterior neck pain with radiation to his left shoulder. IMAGING: Cervical x-ray and cervical MRI completed at [facility] on 08/10/2022. Dr. Smith and I have reviewed the images personally and read the radiologist's report. This reveals his instrumentation in secure position from C4-C6 as well as a spacer noted between C6-7. 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 Dr. Smith also saw this patient. PLAN: Cervical CT scan without contrast ACDF fusion extension up to C3-4 for cord compression with removal of the hardware at C4-C6 based on the CT results Dr. Smith spoke with Mr. Wall and his regarding his imaging results. He would like him to get a cervical CT scan to evaluate the status of his fusion to confirm that we would be able to remove the instrumentation from C4-C6. He would then recommend an extension of his fusion up to C3-4 for cord compression. He discussed the surgery in detail including the procedure, risks, and recovery. He would probably put him in a soft collar just as a reminder to limit his activity. We did also discuss difficulty swallowing postoperatively though this may not be as severe as his last surgery where he had 3 levels fused. They will meet with Karyna our senior master scheduler in the office today to get this scheduled. He does not take any blood thinners. They verbalized understanding of all these instructions and are agreeable this plan. They would like to move forward with scheduling the surgery. They are satisfied with this plan of care. [email or web address] Not available 09/20/2022 16:29:33 11/15/2022 11/15/2022 Mr. Wall is progressing well after a C3-4 ACDF extension. His x-rays today look great. He is going to continue to work on getting a bone stimulator. We will see him a couple months with repeat x-rays of the cervical spine. He will remain off work through that time. [email or web address] Not available 11/15/2022 13:16:29 01/03/2023 01/03/2023 I personally reviewed cervical x-rays performed today that show good placement of hardware without complication. He has hardware from C3-C6. Mr. Wall is status post extension of his ACDF to C3-4 on 10/06/2022. 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 I am going to provide him with a work note to return to work tomorrow with no lifting over 30 pounds for 1 month. He has been using his spinal cord stimulator and will continue this for 6 months from the date of surgery. I will have him follow-up again in 6 months with 1 last set of x-rays. He understands to call before then if he has any questions or concerns. [email or web address] Not available 01/03/2023 16:02:43 07/04/2023 07/04/2023 HPI: Mr. Wall is a 57-year-old male with history of C3-4 extension of ACDF for myelopathy on 10/06/2022, now fused C3-[address] Smith across 3 surgeries, who presents today for third postop follow-up visit with new AP lateral cervical x-rays [facility]. He says he is doing really well in regards to his neck and upper extremity symptoms. No radicular pain, no weakness in his hands that he is aware of, no balance or gait issues. His main concern today is pain just to the right of his lumbar spine which is highly mechanical in nature, worse when he is up and active, better when sitting, but also wakes him up at night if he lays flat such that he now has to sleep in a recliner. No lower extremity symptoms. This started a couple months ago without inciting incident. He has tried ibuprofen, some of his postop hydrocodone, and chiropractic treatment. He had to stop the ibuprofen due to the GI upset. Has not tried a muscle relaxer. PHYSICAL EXAM: No neuro deficits noted. Muscle spasm right paraspinal lumbar noted IMAGING: I have reviewed the images personally with Dr. Smith and read the radiologist's report. AP lateral cervical x-ray: New hardware intact, in place, no issues noted. There is a previous screw fracture at the well fused inferior levels that has been known for several years. ASSESSMENT: Dr. Smith also saw this patient. Doing really well in regards to his cervical complaints. No further restrictions at this time, but told him to listen to his body and if he did something that made him hurt, to hold back and not push through that pain. Okay to go back to shooting etc. but avoid high impact activities until he has another 3 months out. In regards to his lumbar symptoms, we know he has significant degenerative issues in his cervical spine, and would expect him to have some degenerative issues in his lumbar spine as well. No prior lumbar surgery that we are aware of. 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 No longer able to tolerate the NSAIDs, so I will try him on a muscle relaxer to see if that helps with the muscle spasms, particularly at night. I will also get him started in lumbar physical therapy. Suspect he may have a lumbar spondylolisthesis. We will evaluate with standing lumbar x-rays including flexion/extension. If he does have some instability or spondylolisthesis on his x-rays, could be a candidate for surgery and will likely follow-up with MRI. PLAN: Lumbar physical therapy AP/lateral/flexion/ extension lumbar x-rays while standing Call after x-rays are done to discuss next steps Tizanidine 4 mg [email or web address] Not available 07/04/2023 11:08:15 Plan of Treatment Reminders Order Date Submit Date Provider Last Modified By Organization Details Last Modified Time Details Appointments None recorded. Lab None recorded. Referral None recorded. Procedures None recorded. Surgeries None recorded. Imaging None recorded. Medication Orders methocarbam ol 500 mg tablet 2022 023 [facility], [address], [place], [address], 11:12:17 Patient TargetsNo targets recorded. Patient InstructionsNo instructions recorded. Reason for Referral None Reported. Results Created Date Observation Date Name Description Value Unit Range Abnormal Flag Note LastModifiedBy Organization Detail LastModifiedTime 09/22/1908/10/2022 MRI, cervi catrachito spine , w/wo contr ast No observ ation record ed. BARCODE Not Available 2022 13:45:53 09/22/19 23 08/10/2022 XR, cervi catrachito spine , 6 or more view No observ ation record ed. BARCODE Not Available 2022 13:45:53 09/30/19 23 09/30/2022 CT, cervi catrachito spine , w/o contr ast [facility] [address] [place] [address] Elliott t Name: HARRIETT sinclair : [address] Orderi ng Provid er: MOY SMITH EXAM DATE: 2022 EXAM: CT CERVIC AL WITHOU T CONTRA ST HISTOR Y: 56-yea r-old male with neck and left should er pain. COMPAR KYRA: Radiog raph dated 021 Techni que: 1 mm direct axial slices were obtain ed throug h the cervic al spine. Comput er-gen erated axial, frankel l, and sagitt al recons tructi ons are provid ed for interp retati on. FINDIN GS: The patien t is status post discec abbie and anteri or fusion from C4 throug h C6. There is beam harden ing artifa ct from the anteri or fusion plate and screws . There is no eviden ce of loosen ing of the hardwa re. There is prior discec abbie and fusion at C6-C7. There is persis tent lucenc y in the disc space. There is diffus e levocu rvatur e of the cervic al spine. There is no compre ssion fractu re or pathol ogic intrao sseous lesion . There is focal anteri or margin al osteop hytic spurri ng at C6-C7. No parasp inous soft tissue abnorm ality is identi fied. The visual ized spinal cord and storeroom keeper ior fossa of the brain are normal in appear ance. The cranio cervic al juncti on is normal in appear ance. There are mild degene rative change s at C1-C2. C2-C3: There is a centra l disc bulge/ protru doug. There is modera te centra l canal stenos is. There is no neural forami nal stenos is. C3-C4: There is a broad- based disc bulge/ protru doug, mild endpla te spurri ng and mild facet arthro basil. There is severe centra l canal stenos is. There is modera te right neural forami nal narrow ing. C4-C5: There is prior fusion with residu al endpla te spurri ng and facet arthro basil. There is probab le centra l canal stenos is. There is severe left and modera te right neural forami nal narrow ing. C5-C6: There is prior fusion with residu al endpla te spurri ng. There is probab le centra l canal stenos is. There is modera te/sev ere bilate ral neural forami nal stenos is. C6-C7: There is severe uncove rtebra l spurri ng with a diffus e disc/o steoph yte comple x. There is modera te centra l canal stenos is. There is severe bilate ral neural forami nal stenos is. C7-T1: There is mild endpla te spurri ng. The disc is not well seen. There is no marty centra l canal stenos is. There is mild neural forami nal narrow ing. T1-T2: There is severe left and modera te right neural forami nal narrow ing. IMPRES DOUG: 1. The patien t is status post ACDF from C4 throug h C6 and probab le prior fusion at C6-C7. There is no eviden ce of loosen ing of the hardwa re. There is modera te to severe neural forami nal stenos is at these levels with probab le modera te centra l canal narrow ing at C6-C7. There is limite d visual izatio n along the disc spaces from beam harden ing artifa ct. 2. There is severe centra l canal narrow ing at C3-C4 and modera te centra l canal narrow ing at C2-C3. Interp reted By: Nacho vanessa MD Electr onical ly Signed By: Nacho vanessa MD on 09/30/19 23 2:20 PM [facility] [address], [phone], 11/02/2022 10:47:23 11/16/19 23 11/15/2022 XR, cervi catrachito spine , 2 or [address] [address] Roslyndanisha sinclair Name: HARRIETT sinclair : [address] Pat[address] sinclair Orderi ng Provid er: MOY Rowan SAVANNA EXAM DATE: 2022 EXAM: XR CERVIC AL AP/LAT CLINIC AL INFORM ATION: Postop erativ e. IMAGES PROVID ED: AP, and latera l views of the cervic al spine. COMPAR KYRA: None. FINDIN GS AND IMPRES DOUG: Spinal fusion is noted at C3-C7 level. Surgic al hardwa re is satisf actori ly placed . No eviden ce of loosen ing or infect ion is seen. Other levels are normal . Interp reted By: La Nena Desouza MD Electr onical ly Signed By: La Nena Desouza MD on 023 12:36 PM [email or web address] [facility] [address], [phone], 01/04/2023 10:27:51 01/04/20 23 01/03/2023 XR, cervi catrachito spine , 2 or [address] [place] [address] Elliott sinclair Name: HARRIETT sinclair : [phone] Elliott sinclair Orderi ng Provid er: MOY Rowan SAVANNA EXAM DATE: 2022 EXAM: XR CERVIC AL AP/LAT CLINIC AL INFORM ATION: Postop erativ e. IMAGES PROVID ED: AP, and latera l views of the cervic al spine. COMPAR KYRA: None. FINDIN GS AND IMPRES DOUG: Anteri or spinal fusion is noted at C3-C6 level with compre ssion plate and screws . Surgic al hardwa re is satisf actori ly placed . No eviden ce of loosen ing or infect ion is seen. Degene rative change s are seen at other levels . Interp reted By: La Nena Desouza MD Electr onical ly Signed By: La Nena Desouza MD on 01/04/20 1:01 PM [facility] [address], [phone], 01/10/2023 09:59:10 07/04/20 23 07/04/2023 XR, lumbo sacra l spine , 4 or more view [address] [place] [address] Elliott sinclair Name: HARRIETT sinclair : [phone] Elliott sinclair Orderi ng Provid er: MOY DOMINGUEZT EXAM DATE: 2022 EXAM: XR LUMBAR SPINE AP/LAT /FLEX/ EXT CLINIC AL INFORM ATION: Back pain. IMAGES PROVID ED: AP, latera l and coned- down views of the lumbar spine with additi onal latera l views in flexio n and extens ion. COMPAR KYRA: None. FINDIN GS: Verteb ral body height s are normal . Schmor l's nodes are seen at L2 and L3 levels . Multil evel disc space reduct ion is seen with anteri or and latera l osteop hytes. No abnorm ality of alignm ent is seen. No instab ility is seen on flexio n or extens ion. Degene rative change s are seen in the facet joints . No radiog raphic eviden ce of injury is noted. IMPRES DOUG: Degene rative change s of the lumbar spine. No instab ility. Interp reted By: La Nena Desouza MD Electr onical ly Signed By: La Nena Desouza MD on 023 1:16 PM MARILOU [facility] [address], [phone], 07/05/2023 09:15:50 07/04/20 23 07/04/2023 XR, cervi catrachito spine , 2 [place] 3 [place] [address] Elliott sinclair Name: HARRIETT sinclair : [address] Orderi ng Provid er: SONU GARCIA EXAM DATE: 2022 EXAM: XR CERVIC AL AP/LAT CLINIC AL INFORM ATION: Postop erativ e. IMAGES PROVID ED: AP, and latera l views of the cervic al spine. COMPAR KYRA: None. FINDIN GS AND IMPRES DOUG: Anteri or spinal fusion is noted at C3-C6 level with compre ssion plate and screws . Surgic al hardwa re is satisf actori ly placed . No eviden ce of loosen ing or infect ion is seen. Other levels are normal . Interp reted By: La Nena Desouza MD Electr onical ly Signed By: La Nena Desouza MD on 023 2:27 PM [email or web address] [facility] [address], [address], 07/04/2023 15:43:04 Result Notes Documentation Provider Name and Address Organization Details Recorded Time Ct, Cervical Spine, W/o Contrast : [address] [address] Patient Name: JAD WALL Patient : 1965 Patient Ordering Provider: ELISSA SMITH EXAM DATE: 09/30/2022 EXAM: CT CERVICAL WITHOUT CONTRAST HISTORY: 56-year-old male with neck and left shoulder pain. COMPARISON: Radiograph dated 11/13/2020 Technique: 1 mm direct axial slices were obtained through the cervical spine. Computer-generated axial, coronal, and sagittal reconstructions are provided for interpretation. FINDINGS: The patient is status post discectomy and anterior fusion from C4 through C6. There is beam hardening artifact from the anterior fusion plate and screws. There is no evidence of loosening of the hardware. There is prior discectomy and fusion at C6-C7. There is persistent lucency in the disc space. There is diffuse levocurvature of the cervical spine. There is no compression fracture or pathologic intraosseous lesion. There is focal anterior marginal osteophytic spurring at C6-C7. No paraspinous soft tissue abnormality is identified. The visualized spinal cord and posterior fossa of the brain are normal in appearance. The craniocervical junction is normal in appearance. There are mild degenerative changes at C1-C2. C2-C3: There is a central disc bulge/protrusion. There is moderate central canal stenosis. There is no neural foraminal stenosis. C3-C4: There is a broad-based disc bulge/protrusion, mild endplate spurring and mild facet arthropathy. There is severe central canal stenosis. There is moderate right neural foraminal narrowing. C4-C5: There is prior fusion with residual endplate spurring and facet arthropathy. There is probable central canal stenosis. There is severe left and moderate right neural foraminal narrowing. C5-C6: There is prior fusion with residual endplate spurring. There is probable central canal stenosis. There is moderate/severe bilateral neural foraminal stenosis. C6-C7: There is severe uncovertebral spurring with a diffuse disc/osteophyte complex. There is moderate central canal stenosis. There is severe bilateral neural foraminal stenosis. C7-T1: There is mild endplate spurring. The disc is not well seen. There is no marty central canal stenosis. There is mild neural foraminal narrowing. T1-T2: There is severe left and moderate right neural foraminal narrowing. IMPRESSION: 1. The patient is status post ACDF from C4 through C6 and probable prior fusion at C6-C7. There is no evidence of loosening of the hardware. There is moderate to severe neural foraminal stenosis at these levels with probable moderate central canal narrowing at C6-C7. There is limited visualization along the disc spaces from beam hardening artifact. 2. There is severe central canal narrowing at C3-C4 and moderate central canal narrowing at C2-C3. Interpreted By: Jad Aleman MD E ARGUELLO PA-C [address] [place] [address], [phone] 11/02/2022 10:47:23 Xr, Cervical Spine, 2 Or 3 View : [place] [address] Patient Name: JAD WALL Patient : 1965 Patient Ordering Provider: ELISSA SMITH EXAM DATE: 11/15/2022 EXAM: XR CERVICAL AP/LAT CLINICAL INFORMATION: Postoperative. IMAGES PROVIDED: AP, and lateral views of the cervical spine. COMPARISON: None. FINDINGS AND IMPRESSION: Spinal fusion is noted at C3-C7 level. Surgical hardware is satisfactorily placed. No evidence of loosening or infection is seen. Other levels are normal. Interpreted By: Mateo Desouza MD Paresh [facility] 01/04/2023 10:27:51 Xr, Cervical Spine, 2 Or 3 View : [address] [address] Patient Name: JAD WALL Patient : 1965 Patient Ordering Provider: ELISSA SMITH EXAM DATE: 01/03/2023 EXAM: XR CERVICAL AP/LAT CLINICAL INFORMATION: Postoperative. IMAGES PROVIDED: AP, and lateral views of the cervical spine. COMPARISON: None. FINDINGS AND IMPRESSION: Anterior spinal fusion is noted at C3-C6 level with compression plate and screws. Surgical hardware is satisfactorily placed. No evidence of loosening or infection is seen. Degenerative changes are seen at other levels. Interpreted By: Mateo Desouza MD SA SMITH MD [address] [place] [address], [phone], [facility] 01/07/2023 08:31:00 Xr, Lumbosacral Spine, 4 Or More View : [address] [address] Patient Name: JAD WALL Patient : 1965 Patient Ordering Provider: ELISSA SMITH EXAM DATE: 07/04/2023 EXAM: XR LUMBAR SPINE AP/LAT/FLEX/EXT CLINICAL INFORMATION: Back pain. IMAGES PROVIDED: AP, lateral and coned-down views of the lumbar spine with additional lateral views in flexion and extension. COMPARISON: None. FINDINGS: Vertebral body heights are normal. Schmorl's nodes are seen at L2 and L3 levels. Multilevel disc space reduction is seen with anterior and lateral osteophytes. No abnormality of alignment is seen. No instability is seen on flexion or extension. Degenerative changes are seen in the facet joints. No radiographic evidence of injury is noted. IMPRESSION: Degenerative changes of the lumbar spine. No instability. Interpreted By: Mateo Desouza MD SA SMITH MD [address] [place] [address], [phone] 07/04/2023 13:28:44 Xr, Cervical Spine, 2 Or 3 View : [address] [address] Patient Name: JAD WALL Patient : 1965 Patient Ordering Provider: SONU JAMES EXAM DATE: 07/04/2023 EXAM: XR CERVICAL AP/LAT CLINICAL INFORMATION: Postoperative. IMAGES PROVIDED: AP, and lateral views of the cervical spine. COMPARISON: None. FINDINGS AND IMPRESSION: Anterior spinal fusion is noted at C3-C6 level with compression plate and screws. Surgical hardware is satisfactorily placed. No evidence of loosening or infection is seen. Other levels are normal. Interpreted By: Mateo Desouza MD JAMES PA-C [address] [place] [address], [phone], [facility] 07/04/2023 15:43:04 Problems Name Problem SNOMED Code Status Onset Date Resolution Date Notes Provider Name and Address Organization Details Recorded Time Neck pain 00188640 Active 2015 From Automated Load;Provi isaiah: Nell Candelario;Sta tus: Active Not Available [facility] 6 10:14:45 Pain in right arm 733500809 Active 2015 From Automated Load;Provi isaiah: Nell Candelario;Sta tus: Active Not Available [facility] 6 10:14:45 Displacem ent of cervical intervert ebral disc 485654700 Active 2015 From Automated Load;Provi isaiah: Elissa Smith;St atus: Active Not Available [facility] 10:14:45 Cervical myelopath y 321393929 Active 2019 NEMO LANGSTON PA-C [address] [place] [address], [phone] [facility] 0 16:17:01 Problem Notes None recorded. Procedures Surgical History Date Name Laterality Status Provider Name and Address Organization Details Recorded Time 021 ANTERIOR CERVICAL DISCECTOMY AND FUSION FOR DECOMPRESSION (SURG) completed Shawna Bartlett [facility] 09/29/2020 10:32:19 016 Back Surgery completed Deirdre [facility] 08/19/2016 08:56:15 Cholecystectomy completed [facility] 08/19/2016 09:24:34 Imaging Results None recorded. Procedure Notes None recorded. Medical Equipment None Reported. Allergies Allergen ID Allergen Name Allergen Category Reaction Reaction Severity Criticality Documentation Date Start Date Code Code System Note Provider Name and Address Organization Details Recorded Time 518282 Product containin g penicilli n (product) medicatio n Not available Not available Not available 07/22/20162013 20625 8001 SNOMED Comme nt: Creat ed By: Juan bird Date: 2013 2:26: 28 PM; Not Available [facility] 6 11:39:50 Medications Name Sig Start Date Stop Date Status Note LastModified by Organization Details LastModified Time celecoxib 200 mg capsule 11/17 /2022 completed Not Available Not Available Not Available cyclobenza ana 10 mg tablet active Not Available Not Available No t Available methocarba mol 500 mg tablet Take 1 tablet 4 times a day by oral route as needed. 2022 active Not Available Not Available Not Avai lable ciprofloxa mendoza 500 mg tablet 07/15 completed Not Available Not Available Not Available omeprazole 40 mg capsule,de layed release Every night at bedtime active Not Available Not Available No t Available hydrocodon e 7.5 mg-acetami nophen 325 mg tablet Take 1 tablet every 6 hours by oral route as needed. active Not Available Not Available No t Available hydrochlor othiazide 25 mg tablet Daily active Not Available Not Available Not Available methylpred nisolone 4 mg tablets in a dose pack prn active Not Available Not Available Not Available Percocet 5 mg-325 mg tablet Every six to eight hours 07/15 completed Duratio n: 20 days;In structi ons: Take with TERESA 250mg BID;Herman quency: q6-8h;A lt Frequen cy: prn pain;Me dicatio n Descrip tion: acetami nophen- oxycodo ne; Dosage: 1; Route:o ral; refills :0; Quantit y:60 tablet Not Available Not Available Not Available ramipril 5 mg capsule Daily active Not Available Not Available N ot Available cyclobenza ana 5 mg tablet Three times a day 07/15 completed Not Available Not Available Not Available rosuvastat in 10 mg tablet 1 qd active Not Available Not Available Not Available duloxetine 60 mg capsule,de layed release 1 qd active Not Available Not Available Not Available Cymbalta 30 mg capsule,de layed release Daily 07/15 completed Frequen cy: daily;M edicati on Descrip tion: duloxet ine; Dosage: 1; Route:o ral; refills :0 Not Available Not Available Not Available [employer] At-Home COVID-19 Test kit 07/15 completed Not Available Not Available Not Available Vitals Date Recorded Body height Body mass index (BMI) Body weight Systolic And Diastolic Provider Name and Address Organization Details Last Updated DateTime 09/20/2022 187.96 cm 42.8 kg/m2 989804.26 g 132/84 mm[Hg] [facility] 09/20/2022 15:11:53 Date Recorded Body height Body mass index (BMI) Body weight Systolic And Diastolic Provider Name and Address Organization Details Last Updated DateTime 11/15/2022 187.96 cm 28.4 kg/m2 629466.91 g 140/80 mm[Hg] [facility] 11/15/2022 11:29:44 Date Recorded Body height Body mass index (BMI) Body weight Systolic And Diastolic Provider Name and Address Organization Details Last Updated DateTime 01/03/2023 187.96 cm 42.9 kg/m2 145903.85 g 126/82 mm[Hg] [facility] 01/03/2023 09:31:40 Date Recorded Body height Body mass index (BMI) Body weight Systolic And Diastolic Provider Name and Address Organization Details Last Updated DateTime 07/04/2023 187.96 cm 42.9 kg/m2 787667.85 g 148/79 mm[Hg] Erik Williamson [facility] 07/04/2023 10:30:33 Social History Question Answer Notes LastModified by Organizat ion Details LastModified Time Tobacco Smoking Status Current Every Day Smoker Deirdre elder [facility] 08/19/2016 08:55:46 What Was The Date Of Your Most Recent Tobacco Screening? 07/15/2022 [email or web address] Information not available 07/15/2022 Sex: Male Functional Status None recorded. Mental Status None recorded. Family History Relationship Description Onset Age of this Age Resolved Age Notes LastModified by Organization Details LastModified Time Unspecified Relation Hypertensive disorder [email or web address] Not available 2015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
== END 2025-07-15 23:59 | disposition home or self-care (01) ==
LOC: LAB 15:13
PROVIDERS: PCP Family Medicine; Visit Provider Specialist
DX: E83.10 Disorder of iron metabolism, unspecified (principal)
CPT/HCPCS: 36415; 82728